=== PATIENT | male | born 1975 | race African-American/Black ===

== ENCOUNTER 2023-05-19 20:16 | Emergency (ER) | payer OTHER ==
[~2023-05-19] VITALS: Ht 175.3 cm; Wt 104.6 kg
[2023-05-19 23:56] VITALS: BP 153/104; O2SAT 98
[2023-05-20] MEDS ORDERED: HYDROcodone-ACET 5/325MG TAB PO ONE
[2023-05-20] MEDS ORDERED: CYCL-839 PO (00:01)
[2023-05-20] MEDS ORDERED: IBUP1TAB5 PO (00:01)
[2023-05-20 00:33] VITALS: PULSE 80; RESP 16
== END 2023-05-20 01:42 | disposition home or self-care (01) ==
LOC: ER 20:16
DX: S13.9XXA Sprain of joints and ligaments of unspecified parts of neck, initial encounter (principal); S06.0XAA Concussion with loss of consciousness status unknown, initial encounter; I10 Essential (primary) hypertension; M25.70 Osteophyte, unspecified joint; M50.30 Other cervical disc degeneration, unspecified cervical region; M51.36 Other intervertebral disc degeneration, lumbar region; V89.2XXA Person injured in unspecified motor-vehicle accident, traffic, initial encounter; Y93.89 Activity, other specified; Y92.89 Other specified places as the place of occurrence of the external cause; Y99.8 Other external cause status
CPT/HCPCS: 70450; 72040; 72100; 93005